=== PATIENT | male | born 2000 | race Caucasian/White ===

== ENCOUNTER 2022-10-16 12:05 | Emergency (ER) | payer MEDICAID ==
[~2022-10-16] VITALS: Ht 172.7 cm; Wt 66.7 kg
[2022-10-16 12:11] VITALS: BP 138/80
[2022-10-16] MEDS ORDERED: KETOROLAC 30 MG/ML VIAL IM ONE (12:25)
[2022-10-16] MEDS ORDERED: HYDROcodone/APAP 5/325 MG 1 TAB TAB PO ONE (12:30)
[2022-10-16] MEDS ORDERED: IBUP-2213 PO (13:26)
[2022-10-16 14:02] VITALS: BP 138/80
== END 2022-10-16 14:00 | disposition home or self-care (01) ==
LOC: MED 12:05
DX: S46.812A Strain of other muscles, fascia and tendons at shoulder and upper arm level, left arm, initial encounter (principal); R03.0 Elevated blood-pressure reading, without diagnosis of hypertension; R07.9 Chest pain, unspecified; Z79.899 Other long term (current) drug therapy; X58.XXXA Exposure to other specified factors, initial encounter; Y93.89 Activity, other specified; Y92.89 Other specified places as the place of occurrence of the external cause; Y99.8 Other external cause status
CPT/HCPCS: 71045; 73030; 96372; 99284; J1885